=== PATIENT | female | born 1965 | race African-American/Black ===

== ENCOUNTER 2016-05-04 15:14 | Emergency (ER) | payer BC ==
--- NOTE | 2016-05-04 15:51 | ER Document Report ---
ED Medical Screen (RME) - General Stated Complaint: CHEST PAIN Notes: onset; wednesday nonproductive Cough, chest pain associated with coughing, occasional SOB, vomiting went to ED on wednesday: azithromycin and prednisone I have greeted and performed a rapid initial assessment of this patient. A comprehensive ED assessment and evaluation of the patient, analysis of test results and completion of the medical decision making process will be conducted by additional ED providers. TRAVEL OUTSIDE OF THE [place] IN LAST 30 DAYS: No - Related Data Allergies/Adverse Reactions: aspirin [Aspirin] Allergy (Verified 05/04/16 15:47) Hives Past Medical History Pulmonary Medical History: Denies: Hx Tuberculosis Endocrine Medical History: Reports: Hx Hypothyroidism Musculoskeltal Medical History: Reports Hx Arthritis - Right knee Psychiatric Medical History: Reports: Hx Anxiety, Hx Depression Past Surgical History: Reports: Hx Gynecologic Surgery - 2 ectopic pregnancies, Hx Tubal Ligation - Immunizations Immunizations up to date: Yes Hx Diphtheria, Pertussis, Tetanus Vaccination: Yes
[2016-05-04] MEDS ORDERED: ACETAMINOPHEN 325 MG TABLET PO ONE (15:52)
--- NOTE | 2016-05-04 18:04 | EKG REPORT ---
SEVERITY:- BORDERLINE ECG - SINUS RHYTHM BORDERLINE T ABNORMALITIES, ANT-LAT LEADS : Confirmed by: Don Delarosa MD 04-May-2016 18:03:58
[2016-05-04] MEDS ORDERED: NORMAL SALINE 1000 ML 1,000 ML IV PRN (19:34)
[2016-05-04] MEDS ORDERED: ONDANSETRON HCL INJ/PF 4 MG/2 ML SDV IV ONE (19:35)
[2016-05-04] MEDS ORDERED: MORPHINE SULFATE 10 MG/ML INJ IV ONE (19:35)
--- NOTE | 2016-05-04 19:37 | ER Document Report ---
[id number] TRAVEL OUTSIDE OF THE [place] IN LAST 30 DAYS: No - HPI Onset: Other Onset/Duration: Persistent Quality of pain: Achy Associated symptoms: Other - see narrative Similar symptoms previously: Yes Recently seen / treated by doctor: Yes <NICOL NELSON - Last Filed: 05/04/16 23:05> <TIM CHANG - Last Filed: 05/07/16 01:23> - General Chief Complaint: Nonproductive Cough Stated Complaint: CHEST PAIN Notes: Patient is a 50-year-old female that presents to the emergency department today with complaints of a cough, vomiting, headaches, and chest pain associated with her cough. Patient states her symptoms began a few days ago and she was seen at an ED in [place] and she was diagnosed with bronchitis and she was prescribed antibiotics and prednisone. Patient states she has had diarrhea since starting the antibiotics. Patient denies fevers, chills, urinary symptoms , or a productive cough. (NICOL NELSON) - Related Data Allergies/Adverse Reactions: aspirin [Aspirin] Allergy (Verified 05/04/16 15:47) Hives Past Medical History - General Information source: Patient - Social History Smoking Status: Smoker,Current Status Unk Chew tobacco use (# tins/day): No Frequency of alcohol use: None Drug Abuse: None Lives with: Family Family History: Reviewed & Not Pertinent, DM, Hypertension Patient has suicidal ideation: No Patient has homicidal ideation: No Endocrine Medical History: Reports: Hx Hypothyroidism Musculoskeltal Medical History: Reports Hx Arthritis - Right knee Psychiatric Medical History: Reports: Hx Anxiety, Hx Depression Past Surgical History: Reports: Hx Gynecologic Surgery - 2 ectopic pregnancies, Hx Tubal Ligation - Immunizations Immunizations up to date: Yes Hx Diphtheria, Pertussis, Tetanus Vaccination: Yes <NICOL NELSON - Last Filed: 05/04/16 23:05> Review of Systems - Review of Systems Constitutional: denies: Chills, Fever EENT: No symptoms reported Cardiovascular: See HPI, Chest pain Respiratory: See HPI, Cough Gastrointestinal: See HPI, Diarrhea, Vomiting Genitourinary: denies: Burning, Dysuria, Discharge Female Genitourinary: No symptoms reported Musculoskeletal: No symptoms reported Skin: No symptoms reported Hematologic/Lymphatic: No symptoms reported Neurological/Psychological: See HPI, Headaches -: Yes All other systems reviewed and negative <NICOL NELSON - Last Filed: 05/04/16 23:05> Physical Exam <NICOL NELSON - Last Filed: 05/04/16 23:05> <TIM CHANG - Last Filed: 05/07/16 01:23> - Vital signs Vitals: Temp Pulse Resp BP Pulse Ox 98.3 F 74 18 112/48 L 98 05/04/16 23:00 05/04/16 23:00 05/04/16 23:00 05/04/16 23:00 05/04/16 23:00 - Notes Notes: Physical Exam: General: Alert, appears well. HEENT: Normocephalic. Atraumatic. PERRL. Extraocular movements intact. Oropharynx clear. Neck: Supple. Non-tender. Respiratory: No respiratory distress. Clear and equal breath sounds bilaterally. Non-productive cough. Cardiovascular: Regular rate and rhythm. Abdominal: Normal Inspection. Non-tender. No distension. Normal Bowel Sounds. Back: Non-tender. No deformity or step off. Extremities: Moves all four extremities. Upper extremities: Normal inspection. Non-tender. Normal ROM. Lower extremities: Normal inspection. Non-tender. No edema. Normal ROM. Neurological: Normal cognition. AAOx4. Normal speech. Psychological: Normal affect. Normal Mood. Skin: Warm. Dry. Normal color. (OMARNICOL) Course - Laboratory Result Diagrams: 05/04/16 20:22 05/04/16 20:22 <NICOL NELSON - Last Filed: 05/04/16 23:05> - Laboratory Result Diagrams: 05/04/16 20:22 05/04/16 20:22 <TIM CHANG - Last Filed: 05/07/16 01:23> - Re-evaluation Re-evalutation: 05/04/16 22:40 I personally performed the services described in the documentation, reviewed and edited the documentation which was dictated to my scribe in my presence, and it accurately records my words and actions. presents emergency Department chief plain nausea vomiting diarrhea. Patient has had a cough for 3 or 4 days says she is coughing so hard her chest hurts. It is not exertional in nature she is not short of breath. No cardiac history said this morning she started having vomiting and diarrhea no blood in her stool. She was taking Zithromax and prednisone for a recent visit to an outlying facility where she was diagnosed with bronchitis. Patient is well-appearing nontoxic in no acute distress serial abdominal examinations no tenderness guarding rebound rigidity gave her IV fluid she is anemic she says she's that at baseline she takes iron deficiency tablets for that. Negative acute labs will DC on Zofran 1-2 day PCP follow-up and discuss reasons for ED returns (TIM CHANG) - Vital Signs Vital signs: Temp Pulse Resp BP Pulse Ox 98.3 F 74 18 112/48 L 98 05/04/16 23:00 05/04/16 23:00 05/04/16 23:00 05/04/16 23:00 05/04/16 23:00 - Laboratory Laboratory results interpreted by me: 05/04/16 05/04/16 05/04/16 20:22 20:22 21:14 Hgb 9.3 L Hct 30.2 L MCV 72 L MCH 22.4 L MCHC 30.9 L RDW 16.9 H Seg Neutrophils % 89.5 H Lymphocytes % 7.4 L Monocytes % 2.6 L Absolute Neutrophils 8.9 H BUN 24 H Est GFR (Non-Af Amer) 58 L Glucose 119 H Urine Ascorbic Acid 40 H (TIM CHANG) Discharge <NICOL NELSON - Last Filed: 05/04/16 23:05> <TIM CHANG - Last Filed: 05/07/16 01:23> - Discharge Clinical Impression: Vomiting and diarrhea Acute bronchitis Qualifiers: Bronchitis organism: unspecified organism Qualified Code(s): J20.9 - Acute bronchitis, unspecified Condition: Stable Disposition: HOME, SELF-CARE Additional Instructions: Bronchitis You have acute bronchitis. This disease is an infection or inflammation of the air passageways in your lungs. Symptoms usually include cough, low grade fever, shortness of breath, and wheezing. The cough usually persists for a couple of weeks. Most cases of bronchitis get better without antibiotics. We prescribe antibiotics when we believe bacteria are damaging your airways, or if there's high risk the bronchitis will worsen into pneumonia. Increase your fluid intake. A cool mist humidifier may make your lungs more comfortable. An expectorant (cough medicine that loosens phlegm) can help. If you smoke, STOP!!! Recovery from bronchitis can be somewhat slow, but you should see improvement within a day or two. Repeated episodes of bronchitis may result in lung damage -- for example, chronic bronchitis, recurrent pneumonias, or emphysema. Call the doctor if you develop increasing fever, shortness of breath, chest pain, bloody sputum, or otherwise worsen. If you have not improved at all after several days, contact the physician. Vomiting and diarrhea Vomiting can be part of many illnesses. Most cases of vomiting are due to gastroenteritis, usually a viral infection in the intestinal tract. There is no specific treatment. The disease will end by itself. For now, the main danger to your child is dehydration. During the first few hours of the illness, give clear liquids, such as Pedialyte. Try to give small quantities frequently, such as a teaspoon of liquid every minute or about an ounce of fluids every five to ten minutes. Medications may be prescribed by the physician for special cases. After an hour or two of fluids without vomiting, add rice cereal, toast, applesauce, or bananas and other more solid foods to the clear liquids. Call the physician or go to the hospital if vomiting increases or blood appears in the bowel movement or vomitus; if your child fails to improve, or if signs of dehydration occur (no wet diapers for eight to twelve hours, tongue and mouth become dry, not acting as alert as usual). Prescriptions: Ondansetron [Zofran Odt 4 mg Tablet] 1 - 2 tab PO Q4H PRN #15 tab.rapdis PRN Reason: For Nausea/Vomiting Forms: Return to Work Referrals: [facility] [Provider Group] - Follow up as needed (in 2-3 days return to er sooner for increasing worsening or new symptoms) Scribe Documentation <NICOL NELSON - Last Filed: 05/04/16 23:05> <TIM CHANG - Last Filed: 05/07/16 01:23> - Scribe Written by Garett:: Jaren (NICOL NELSON)
[2016-05-04 20:46] LABS: ABSOLUTE LYMPHOCYTES (AUTO) 0.7 10^3/uL (0.5-4.7); ABSOLUTE MONOCYTES (AUTO) 0.3 10^3/uL (0.1-1.4); ABSOLUTE NEUT (AUTO) 8.9 10^3/uL (1.7-8.2); BASOPHILS % (AUTO) 0.4 % (0-2); EOSINOPHILS % (AUTO) 0.1 % (0-6); HEMATOCRIT 30.2 % (36.0-47.0); HEMOGLOBIN 9.3 g/dL (12.0-15.5); HGB HCT DIFFERENCE -2.3; LYMPHOCYTES % (AUTO) 7.4 % (13-45); MEAN CORPUSCULAR HEMOGLOBIN 22.4 pg (27.0-33.4); MEAN CORPUSCULAR HGB CONC 30.9 g/dL (32.0-36.0); MEAN CORPUSCULAR VOLUME 72 fl (80-97); MONOCYTES % (AUTO) 2.6 % (3-13); RED BLOOD COUNT 4.16 10^6/uL (3.72-5.28); RED CELL DISTRIBUTION WIDTH 16.9 % (11.5-14.0); SEGMENTED NEUTROPHILS % (AUTO) 89.5 % (42-78); WHITE BLOOD COUNT 9.9 10^3/uL (4.0-10.5)
[2016-05-04 21:05] LABS: ANION GAP 12 (5-19); BLOOD UREA NITROGEN 24 mg/dL (7-20); CALCIUM 9.7 mg/dL (8.4-10.2); CARBON DIOXIDE 29 mmol/L (22-30); CHLORIDE 102 mmol/L (98-107); GLUCOSE 119 mg/dL (75-110); POTASSIUM 4.6 mmol/L (3.6-5.0); SODIUM 143.1 mmol/L (137-145)
[2016-05-04 21:32] LABS: APPEARANCE,URINE CLEAR; BILIRUBIN,URINE NEGATIVE (NEGATIVE); GLUCOSE, URINE NEGATIVE (NEGATIVE); KETONES,URINE NEGATIVE (NEGATIVE); LEUKOCYTE ESTERASE,URINE NEGATIVE (NEGATIVE); NITRITE,URINE NEGATIVE (NEGATIVE); PROTEIN,URINE NEGATIVE (NEGATIVE); UROBILINOGEN,URINE NEGATIVE mg/dL (<2.0)
[2016-05-05 06:01] VITALS: BP 112/48
== END 2016-05-04 23:06 | disposition home or self-care (01) ==
LOC: ER 15:14
DX: J20.9 Acute bronchitis, unspecified (principal); R11.2 Nausea with vomiting, unspecified; R19.7 Diarrhea, unspecified; R05 Cough; R07.9 Chest pain, unspecified; R51 Headache; D64.9 Anemia, unspecified; Z88.6 Allergy status to analgesic agent; Z79.899 Other long term (current) drug therapy
CPT/HCPCS: 93005; 99284; 96361; 96374; 96375; 36415; 85025; 80048; 81001; 71020; 93010; J2270; J2405; J7030